=== PATIENT | female | born 2005 | race Caucasian/White ===

== ENCOUNTER 2025-02-23 20:47 | Emergency (ER) | payer MEDICAID ==
[~2025-02-23] VITALS: Ht 154.9 cm; Wt 73.2 kg
[2025-02-23 20:56] VITALS: O2SAT 99
[2025-02-23] MEDS ORDERED: GUAI-450 MT (22:45)
[2025-02-23] MEDS: ACETAMINOPHEN 325MG TABLET PO ONE (22:52)
[2025-02-23 22:57] VITALS: BP 107/79; PULSE 91; RESP 18; TEMP 36.8; O2SAT 99
== END 2025-02-23 22:58 | disposition home or self-care (01) ==
LOC: ER 20:47
DX: B34.9 Viral infection, unspecified (principal)
CPT/HCPCS: 99282

== ENCOUNTER 2025-04-01 13:37 | Emergency (ER) | payer MEDICAID ==
[~2025-04-01] VITALS: Ht 160 cm; Wt 60.0 kg
[~2025-04-01 13:37] MED LIST: GUAI-450 MT
[2025-04-01 13:42] VITALS: O2SAT 100
[2025-04-01 13:51] VITALS: BP 120/60; PULSE 73; RESP 18; TEMP 36.9; O2SAT 100
[2025-04-01] MEDS ORDERED: IBUP-2028 MT (15:49)
== END 2025-04-01 16:17 | disposition home or self-care (01) ==
LOC: ER 13:37
DX: M79.645 Pain in left finger(s) (principal); W23.0XXA Caught, crushed, jammed, or pinched between moving objects, initial encounter; Y93.89 Activity, other specified; Y92.89 Other specified places as the place of occurrence of the external cause; Y99.8 Other external cause status
CPT/HCPCS: 73140; 99283